=== PATIENT | female | born 1995 | race African-American/Black ===

== ENCOUNTER 2022-01-23 15:04 | Emergency (ER) | payer BC, SELFPAY ==
[2022-01-23] VITALS (16 sets, daily range): BP systolic 101–125; BP diastolic 64–85; PULSE 93–109; TEMP 36.1; O2SAT 95–98; BMI 38.7
--- NOTE | 2022-01-23 15:21 | ED_ITS ---
HPI - General Adult General Time Seen by Provider: 15:21 Date Seen: 01/23/22 Chief complaint: Chest Pain Stated complaint: Heart Palpatations Time Seen by Provider: 01/23/22 15:05 Source: patient and RN notes reviewed Mode of arrival: ambulatory Limitations: no limitations History of Present Illness HPI narrative: Patient is a 26-year-old female coming in with concern of sense of her heart beating irregular/palpitations. She states it is more of a sense were it will skip a beat. There is times where she feels heaviness or chest but no chest pain. She likens it more to a pressure sensation. Symptoms were present starting Wednesday. She denies any cough or cold symptoms, no recent COVID, no shortness of breath. She is not sensing a fast heart rate. Her mom told her yesterday that she has had symptoms like this before with gas buildup. She states her mom patted her on the back and she ended up having a large burp which did alleviate her symptoms but they returned. She has underlying IBS and reports that normally she would have 3-4 stools per day. She is going once to twice but not necessarily feeling constipated. She does wonder if she could have some stool buildup as she is not defecating as much as usual. No nausea or vomiting, no other abdominal symptoms, no urinary symptoms. She is currently menstruating at this time. She has no prior cardio pulmonary diagnoses. She does not believe that there is anything the family history that would be contributory to her current situation. I did ask about cardiac, pulmonary, endocrine history specifically as well. She is not had any fevers, has not felt warm. Related Data Home Medications Medication Instructions Recorded Confirmed bupropion HCl 300 mg 24 hr tablet, mg PO 01/23/22 extended release lansoprazole 30 mg capsule,delayed mg 01/23/22 release metoclopramide HCl 5 mg tablet mg 01/23/22 sertraline 100 mg tablet mg 01/23/22 Allergies Allergy/AdvReac Type Severity Reaction Status Date / Time nickel Allergy Unknown Verified 01/23/22 15:20 prochlorperazine Allergy Unknown Agitated Verified 01/23/22 15:20 [From Compazine] Review of Systems Status of ROS: Reports: 10 or more systems reviewed and unremarkable except as noted in History and below [facility] Medical History (Updated 01/23/22 @ 18:02 by Genny Cameron MD) Anxiety HSV-2 infection IBS (irritable bowel syndrome) Surgical History (Updated 01/23/22 @ 15:22 by John Flanagan RN) History of cholecystectomy Social History Smoking Status: Never smoker Do you use any of these nicotine containing products: None Second hand tobacco smoke exposure: No How often do you have a drink containing alcohol: never How often do you have six or more drinks on one occasion: Never AUDIT-C Alcohol total score: 0 Non-prescribed substance use: denies use Exam Const: Vital Signs, click to edit/add: Vital Signs - 24 hr 01/23/22 15:14 01/23/22 15:30 01/23/22 15:32 Temperature 96.9 F L Pulse Rate 104 H Pulse Rate [Left P ulse Oximeter] 104 H Blood Pressure 119/85 Blood Pressure [Ri ght Upper Arm] 125/76 Pulse Oximetry 97 96 95 Oxygen Delivery Me thod Room Air 01/23/22 15:33 01/23/22 16:02 01/23/22 16:03 Temperature Pulse Rate 109 H 106 H 99 Pulse Rate [Left P ulse Oximeter] Blood Pressure 101/78 Blood Pressure [Ri ght Upper Arm] Pulse Oximetry 95 97 96 Oxygen Delivery Me thod 01/23/22 16:04 01/23/22 16:34 01/23/22 16:35 Temperature Pulse Rate 104 H 101 H 102 H Pulse Rate [Left P ulse Oximeter] Blood Pressure 107/64 Blood Pressure [Ri ght Upper Arm] Pulse Oximetry 96 96 96 Oxygen Delivery Me thod 01/23/22 17:00 01/23/22 17:01 Temperature Pulse Rate 93 99 Pulse Rate [Left P ulse Oximeter] Blood Pressure 105/78 Blood Pressure [Ri ght Upper Arm] Pulse Oximetry 97 96 Oxygen Delivery Me thod Documenting provider has reviewed patient's vital signs: yes Common normals: no apparent distress, oriented x3, no limitations, alert and well nourished General appearance: cooperative, comfortable and well kempt Nutritional appearance: obese HENMT: Common normals: normocephalic, head/scalp atraumatic, hearing grossly normal bilaterally, external ears normal, external nose normal, nasal mucous membranes and turbinates normal, moist oral mucous membranes, oropharynx normal, dentition normal and gingiva normal Head and scalp: normocephalic and atraumatic Nose: external nose normal and nasal mucous membranes and turbinates normal External ear: external ears normal Eye: Common normals: PERRL, EOMs intact bilaterally, conjunctivae normal and no scleral icterus Conjunctiva: conjunctiva(e) normal Pupil: PERRL Neck & C-Spine: Common normals: full ROM, no lymphadenopathy, supple, no meningeal signs, no JVD and thyroid normal Thyroid: thyroid normal Chest: Common normals: inspection of chest normal and palpation of chest normal Resp: Common normals: normal respiratory effort, no retractions, no use of accessory muscles and clear to auscultation bilaterally Auscultation: clear to auscultation bilaterally Cardio: Common normals: no JVD, regular rhythm, S1 normal heart sound, S2 normal heart sound, no gallops, no clicks, no murmurs, no rub and peripheral pulses 2+ throughout Rate: tachycardic Rhythm: regular rhythm Heart sounds: S1 normal and S2 normal Peripheral pulses: pulses 2+ throughout GI: Common normals: Normal to inspection, nondistended, normoactive bowel sounds present, soft to palpation, non-tender, no hepatosplenomegaly and no masses Palpation: soft and no hepatosplenomegaly Extremity: Common normals: normal to inspection, full ROM, normal capillary refill, no joint enlargement, no clubbing, cyanosis or edema, no calf tenderness and no pedal edema Neuro: Common normals: oriented x3 Sensorium/orientation: alert Meningeal signs: no meningeal signs Speech: speech normal Gait (neuro): normal gait Other: No clonus, orbital or in extremities noted. Cannot elicit reflexes in her extremities. No noted increased motor tone. Psych: Appearance: well kempt Course Course Hospital Course: Well talking to her, nursing staff did have her on cardiac monitoring. She was tachycardic in the low 100 range but does not seem to be necessarily noted in she is tachycardic. I do not have prior vitals on her to compare to. Will have her on cardiac monitoring, pulse oximetry. Will get a portable chest chest x- ray and a full complement of labs. Endocrine disease such is hyperthyroidism, cardiac abnormalities could be at play here. She does not seem to have any source of any infectious etiology. This is a sinus tachycardia. She does not meet criteria for serotonin syndrome. Reevaluation(s) Additional Reevaluation(s): No concerning arrhythmia our the mild sinus tachycardia was noted while here. She was down into the 90s at different times when I was evaluating the monitor car operator. No new symptoms or change in her symptoms while here. Vital Signs Vital signs: Initial Vital Signs Temperature 96.9 F L 01/23/22 15:14 Temperature Source Temporal Artery Scan 01/23/22 15:14 Pulse Rate 104 H 01/23/22 15:14 Blood Pressure 125/76 01/23/22 15:14 Blood Pressure Mean 92 01/23/22 15:14 Blood Pressure Position Supine 01/23/22 15:14 Pulse Oximetry 97 01/23/22 15:14 Oxygen Delivery Method 01/23/22 15:14 Vital Signs Temperature 96.9 F L 01/23/22 15:14 Pulse Rate 104 H 01/23/22 15:14 Blood Pressure 125/76 01/23/22 15:14 Pulse Oximetry 97 01/23/22 15:14 Oxygen Delivery Method 01/23/22 15:14 Temperature 96.9 F L 01/23/22 15:14 Pulse Rate 99 01/23/22 17:01 Blood Pressure 105/78 01/23/22 17:01 Pulse Oximetry 96 01/23/22 17:01 Oxygen Delivery Method 01/23/22 15:14 Medical Decision Making Lab Data Lab results reviewed: Yes I reviewed the patient's lab results Labs: Lab Results 01/23/22 01/23/22 01/23/22 Range/Units 15:55 15:55 15:55 WBC 7.94 (4.50-11.00) K/uL RBC 4.38 (4.00-5.20) m/uL Hgb 13.2 (12.0-16.0) gm/dL Hct 40.5 (33.0-51.0) % MCV 93 (80-100) fL MCH 30 (26-34) pg MCHC 33 (32-36) gm/dL RDW Coeff of Manuel 12.9 (11.5-15.5) % Plt Count 348 (140-440) K/uL Neut % (Auto) 65.1 (42.0-72.0) % Lymph % (Auto) 26.2 (20-44) % [place] % (Auto) 5.9 (0.0-11.0) % Eos % (Auto) 2.3 (0.0-7.0) % Baso % (Auto) 0.4 (0.0-3.0) % Neut # (Auto) 5.17 (1.7-7.0) K/uL Lymph # (Auto) 2.08 (0.90-2.90) K/uL [place] # (Auto) 0.50 (0.00-0.90) K/UL Eos # (Auto) 0.18 (0.00-0.50) K/uL Baso # (Auto) 0.03 (0.00-0.30) K/uL Abs Immat Gran (auto) 0.01 (0.00-0.30) K/uL D-Dimer Quant (PE/DVT) < 0.27 (0.00-0.50) ug/ml VBG pH (7.32-7.43) VBG pCO2 (40-50) mmHG VBG pO2 (25-47) mmHG VBG HCO3 (21-28) mmol/L Sodium 139 (135-149) mmol/L Potassium 3.7 (3.6-5.1) mmol/L Chloride 104 (96-114) mmol/L Carbon Dioxide 26 (20-32) mmol/L BUN 14 (5-24) mg/dL Creatinine 0.7 (0.5-1.5) mg/dL Estimated Creat Clear 114.01 Estimated GFR 122 ml/min Glucose 105 (60-115) mg/dL Lactate (0.5-1.9) mmol/L Calcium 9.2 (8.4-10.6) mg/dL Total Bilirubin 0.3 (0.1-1.5) mg/dL AST 32 (12-35) U/L ALT 22 (4-35) U/L Alkaline Phosphatase 68 (40-150) U/L Troponin I < 0.01 L (0.01-0.04) ng/mL C-Reactive Protein 0.9 (0.5-1.0) mg/dL NT-Pro-B Natriuret Pep 31 (0-125) PG/mL Total Protein 7.2 (6.0-8.3) g/dL Albumin 4.1 (3.3-5.0) g/dL Lipase 161 (23-300) U/L TSH (0.270-4.200) uIU/mL 01/23/22 01/23/22 01/23/22 Range/Units 15:55 15:55 15:55 WBC (4.50-11.00) K/uL RBC (4.00-5.20) m/uL Hgb (12.0-16.0) gm/dL Hct (33.0-51.0) % MCV (80-100) fL MCH (26-34) pg MCHC (32-36) gm/dL RDW Coeff of Manuel (11.5-15.5) % Plt Count (140-440) K/uL Neut % (Auto) (42.0-72.0) % Lymph % (Auto) (20-44) % [place] % (Auto) (0.0-11.0) % Eos % (Auto) (0.0-7.0) % Baso % (Auto) (0.0-3.0) % Neut # (Auto) (1.7-7.0) K/uL Lymph # (Auto) (0.90-2.90) K/uL [place] # (Auto) (0.00-0.90) K/UL Eos # (Auto) (0.00-0.50) K/uL Baso # (Auto) (0.00-0.30) K/uL Abs Immat Gran (auto) (0.00-0.30) K/uL D-Dimer Quant (PE/DVT) (0.00-0.50) ug/ml VBG pH 7.366 (7.32-7.43) VBG pCO2 49 (40-50) mmHG VBG pO2 41.7 (25-47) mmHG VBG HCO3 28 (21-28) mmol/L Sodium (135-149) mmol/L Potassium (3.6-5.1) mmol/L Chloride (96-114) mmol/L Carbon Dioxide (20-32) mmol/L BUN (5-24) mg/dL Creatinine (0.5-1.5) mg/dL Estimated Creat Clear Estimated GFR ml/min Glucose (60-115) mg/dL Lactate 1.2 (0.5-1.9) mmol/L Calcium (8.4-10.6) mg/dL Total Bilirubin (0.1-1.5) mg/dL AST (12-35) U/L ALT (4-35) U/L Alkaline Phosphatase (40-150) U/L Troponin I (0.01-0.04) ng/mL C-Reactive Protein (0.5-1.0) mg/dL NT-Pro-B Natriuret Pep (0-125) PG/mL Total Protein (6.0-8.3) g/dL Albumin (3.3-5.0) g/dL Lipase (23-300) U/L TSH 1.160 (0.270-4.200) uIU/mL Imaging Data Chest x-ray: Attestation: I have reviewed the pertinent imaging results. My impression: My preliminary review of her portable chest x-ray is without acute cardiopulmonary pathology, await Radiology over-read. Radiologist's impression: Patient: PADMA BAÑUELOS Facility:?[facility] Patient ID:?[id number] Site Patient ID:?[id number]. Site :?[id number] Study:?XRay Chest 1 VIEW PORTABLE-01/23/2022 3:48:34 PM Ordering Physician:Bahman Royal Final Report: INDICATION: Chest pain, heart palpitations. TECHNIQUE: Chest 1 view. COMPARISON: None. FINDINGS: No focal consolidation, pleural effusion, or pneumothorax. Normal heart size and pulmonary vascularity. The bones are unremarkable. IMPRESSION: No acute cardiopulmonary findings. Dictated by Rashmi Garcia MD @ 01/23/2022 4:26:34 PM (Electronic Signature) ECG Data Attestation: I personally reviewed and interpreted this ECG as follows: (Sinus tachycardia, 102 beats per minute, QT corrected 448 milliseconds.) Prior ECG tracings: not available for review Discharge Plan Discharge Clinical Impression: Palpitations, Sinus tachycardia Patient Disposition: Home, Self-Care Condition: Stable Instructions: Heart Palpitations (ED), Tachycardia (ED) Additional Instructions: Need to schedule a clinic followup next week as soon as you can get in. Need to consider cardiac monitoring with a ZIO patch and possibly having an echo done, ultimately defer to your primary care provider you are following up with. Laboratory evaluation including thyroid was normal here. She did develop a fever, become short of breath, have worsening chest discomfort or new or co ncerning symptoms in the interim, do recommend re-evaluation. Prescriptions: No Action sertraline 100 mg tablet Label Comments: TAKE TWO TABLETS BY MOUTH DAILY metoclopramide HCl 5 mg tablet Label Comments: Take 1 Tablet (5 mg) by mouth every 6 hours if needed for Nausea/Vomiting lansoprazole 30 mg capsule,delayed release(DR/EC) Label Comments: TAKE ONE CAPSULE BY MOUTH ONE TIME DAILY bupropion HCl 300 mg tablet extended release 24 hr PO Label Comments: TAKE ONE TABLET BY MOUTH IN THE MORNING Stand Alone Forms: [facility] Info Inst[facility]
--- NOTE | 2022-01-23 15:30 | CRLHL7_ITS ---
For Patients: As a result of the Century Cures Act, medical imaging exams and procedure reports are released immediately into your electronic medical record. You may view this report before your referring provider. If you have questions, please contact your health care provider. INDICATION: Chest pain, heart palpitations. TECHNIQUE: Chest 1 view. COMPARISON: None. FINDINGS: No focal consolidation, pleural effusion, or pneumothorax. Normal heart size and pulmonary vascularity. The bones are unremarkable. IMPRESSION: No acute cardiopulmonary findings. Dictated by Rashmi Garcia MD @ 01/23/2022 4:26:34 PM (Electronically Signed)
[2022-01-23 16:16] LABS: HCO3 VBG 28 mmol/L (21-28); PCO2 VBG 49 mmHG (40-50); PO2 VBG 41.7 mmHG (25-47); pH VBG 7.366 (7.32-7.43)
[2022-01-23 16:20] LABS: Basophils Absolute Auto 0.03 K/uL (0.00-0.30); Basophils Percent Auto 0.4 % (0.0-3.0); Eosinophils Absolute Auto 0.18 K/uL (0.00-0.50); Eosinophils Percent Auto 2.3 % (0.0-7.0); Hematocrit 40.5 % (33.0-51.0); Hemoglobin* 13.2 gm/dL (12.0-16.0); Immature Granulocytes Abs Auto 0.01 K/uL (0.00-0.30); Lactate* 1.2 mmol/L (0.5-1.9); Lymphocytes Absolute Auto 2.08 K/uL (0.90-2.90); Lymphocytes Percent Auto 26.2 % (20-44); Mean Corpuscular HGB Conc 33 gm/dL (32-36); Mean Corpuscular Hemoglobin 30 pg (26-34); Mean Corpuscular Volume 93 fL (80-100); Monocytes Percent Auto 5.9 % (0.0-11.0); Neutrophils Absolute Auto 5.17 K/uL (1.7-7.0); Neutrophils Percent Auto 65.1 % (42.0-72.0); Platelet Count* 348 K/uL (140-440); RDW Coefficient of Variation % 12.9 % (11.5-15.5); Red Blood Count 4.38 m/uL (4.00-5.20); White Blood Count* 7.94 K/uL (4.50-11.00)
[2022-01-23 16:23] LABS: Slide Review Reflex No
[2022-01-23 16:45] LABS: Albumin* 4.1 g/dL (3.3-5.0); Chloride* 104 mmol/L (96-114)
[2022-01-23 16:46] LABS: Potassium* 3.7 mmol/L (3.6-5.1); Sodium* 139 mmol/L (135-149)
[2022-01-23 16:48] LABS: Creatinine* 0.7 mg/dL (0.5-1.5); Est. Creatinine Clearance* 114.01; Estimated Glomerular Filt Rate 122 ml/min
[2022-01-23 16:49] LABS: Alanine Aminotransferase* 22 U/L (4-35); Alkaline Phosphatase* 68 U/L (40-150); Aspartate Amino Transferase* 32 U/L (12-35); Bilirubin Total* 0.3 mg/dL (0.1-1.5); Blood Urea Nitrogen* 14 mg/dL (5-24); Calcium* 9.2 mg/dL (8.4-10.6); Carbon Dioxide* 26 mmol/L (20-32); Glucose* 105 mg/dL (60-115); Lipase* 161 U/L (23-300); Total Protein* 7.2 g/dL (6.0-8.3)
[2022-01-23 16:52] LABS: C Reactive Protein* 0.9 mg/dL (0.5-1.0)
[2022-01-23 16:58] LABS: NT Pro B Type NatriureticPept* 31 PG/mL (0-125)
[2022-01-23 17:02] LABS: Troponin I* < 0.01 ng/mL (0.01-0.04)
[2022-01-23 17:03] LABS: D Dimer Quantitative* < 0.27 ug/ml (0.00-0.50)
== END 2022-01-23 18:18 | disposition home or self-care (01) ==
PROVIDERS: Emergency Provider Family Medicine
DX: R00.2 Palpitations (principal); R00.0 Tachycardia, unspecified
CPT/HCPCS: 36415; 71045; 80053; 82803; 83605; 83690; 83880; 84443; 84484; 85025; 85379; 86140; 93005; 94761; 99284; 99285

== ENCOUNTER 2022-03-13 11:23 | Emergency (ER) | payer BC, SELFPAY ==
[2022-03-13 11:39] VITALS: BP 108/74; PULSE 107; RESP 20; TEMP 36.3; O2SAT 108; BMI 40.0
--- NOTE | 2022-03-13 12:03 | CRLHL7_ITS ---
For Patients: As a result of the Century Cures Act, medical imaging exams and procedure reports are released immediately into your electronic medical record. You may view this report before your referring provider. If you have questions, please contact your health care provider. INDICATION: First trimester bleeding COMPARISON: None. TECHNIQUE: Real-time vang-scale imaging of the pelvis was performed. FINDINGS: Sonographic imaging demonstrates a single living intrauterine gestation. The embryo demonstrates a regular cardiac rate measuring 168 beats per minute. The embryo`s crown-rump length measurement of 1.7 cm corresponds to a gestational age of 8 weeks 1 day with a sonographic due date of 10/22/2022. There is a normal-appearing yolk sac. There are no gross abnormalities noted within the embryo at this early state of development. The gestational sac has a normal appearance. There is a 4.3 x 1.9 x 1.4 cm perigestational hemorrhage. The amount of fluid within the sac appears appropriate for gestational age. The cervix is closed. The myometrium appears normal. The ovaries are of normal size. Corpus luteal cyst left ovary. There are no suspicious fluid collections noted in the cul-de-sac. IMPRESSION: Large subchorionic hemorrhage measuring 4.3 x 1.9 x 1.4 cm located to the left of the gestational sac. Single living intrauterine with sonographic gestational age 8 weeks 1 day and sonographic due date 10/22/2022. Dictated by Alvin Lloyd MD @ 03/13/2022 2:04:02 PM (Electronically Signed)
--- NOTE | 2022-03-13 12:12 | ED_ITS ---
HPI - General Adult General Time Seen by Provider: 12:13 Date Seen: 03/13/22 Chief complaint: Vaginal Bleeding Stated complaint: 8 weeks ,bleeding Time Seen by Provider: 03/13/22 11:47 Source: patient Mode of arrival: ambulatory Limitations: no limitations History of Present Illness HPI narrative: 26-year-old G3 P 0111 at 7+ 5 weeks by last menstrual period of January 21 who presents today with bleeding. She reports that she has had discharge throughout this , along with nausea vomiting. Today she noted some blood. She is unsure if this is urinary or vaginal. She has not had any abdominal pain or cramping, does feel like she may be constipated although having normal bowel movements. She has not had an ultrasound yet this . She denies fever, chills, dysuria. Last intercourse was over week ago. Related Data Home Medications Medication Instructions Recorded Confirmed bupropion HCl 300 mg 24 hr tablet, 300 mg PO DAILY 01/23/22 03/13/22 extended release lansoprazole 30 mg capsule,delayed 30 mg PO DAILY 01/23/22 03/13/22 release metoclopramide HCl 5 mg tablet 5 mg PO Q6H PRN 01/23/22 03/13/22 sertraline 100 mg tablet 200 mg PO Q24H 01/23/22 03/13/22 vits 75-iron 28 mg-folic 1 pkg PO DAILY 03/06/22 03/13/22 acid 800 mcg-omega3 440 mg oral pack (One Daily ) bupropion HCl 150 mg 24 hr tablet, 150 mg PO DAILY 03/13/22 03/13/22 extended release ondansetron 4 mg disintegrating 4 mg PO Q6H PRN 03/13/22 03/13/22 tablet Allergies Allergy/AdvReac Type Severity Reaction Status Date / Time nickel Allergy Unknown Verified 03/06/22 15:31 prochlorperazine Allergy Unknown Agitated Verified 03/06/22 15:31 [From Compazine] Review of Systems Status of ROS: Reports: 10 or more systems reviewed and unremarkable except as noted in History and below [facility] Medical History Anxiety HSV-2 infection IBS (irritable bowel syndrome) Surgical History History of cholecystectomy Social History Smoking Status: Former smoker Do you use any of these nicotine containing products: None Second hand tobacco smoke exposure: No How often do you have a drink containing alcohol: never How often do you have six or more drinks on one occasion: Never AUDIT-C Alcohol total score: 0 Non-prescribed substance use: denies use Exam Narrative: Exam Narrative: General: Well-developed and well-nourished, no acute distress Head: Atraumatic and normocephalic Eyes: Pupils are equal reactive, extraocular motions intact, conjunctiva clear ENT: External nose and ears are normal, posterior pharynx without erythema or exudate Neck: No midline cervical tenderness, full spontaneous range of motion the neck, trachea midline, no adenopathy Heart: Regular rate and rhythm no murmurs or thrills Lungs: Clear to auscultation bilaterally without wheezes or crackles Abdomen: Soft, nontender, nondistended with active bowel sounds : Thin white vaginal discharge, no blood in the vaginal vault or from the cervix. Cervix is closed. No cervical motion tenderness. Musculoskeletal: No tenderness, deformity, or edema Neurologic: Awake, alert, and oriented x3, no gross focal neurologic deficits, cranial nerves intact as tested Psych: Mood and affect are appropriate Skin: No rashes Const: Vital Signs, click to edit/add: Vital Signs - 24 hr 03/13/22 11:39 Temperature 97.3 F L Pulse Rate [Right Pulse Oximeter] 107 H Respiratory Rate 20 Blood Pressure [Ri ght Upper Arm] 108/74 Pulse Oximetry 108 H Oxygen Delivery Me thod Room Air Course Course Hospital Course: Patient seen examined, prior records reviewed. Patient is about 8 weeks with ongoing vaginal discharge, now with a little bit of bleeding as well although she is not sure if this is vaginal or urinary. No abdominal tenderness on exam. No blood in the vaginal vault on exam, there is thin white discharge and wet prep as well as GC/C ordered. Urinalysis will be done to evaluate for hematuria, Ob ultrasound ordered as well. Reevaluation(s) Reevaluation #1: Labs are reassuring so far. Trace blood on UA with some white blood cells but contaminated with squamous cells as well. Patient will be started on antibiotic and cultures ordered. Wet prep is negative. Verbal report from zone maintenance technician is that patient has a subchorionic hemorrhage that seems to be expanding even during the course of the exam but otherwise intrauterine . Radiology interpretation is pending. Patient is stable for discharge with outpatient follow-up and will be started on Keflex for possible urinary tract infection. Concern for possible impending miscarriage given subchorionic hemorrhage and history of miscarriage. Time: 13:48 Vital Signs Vital signs: Initial Vital Signs Temperature 97.3 F L 03/13/22 11:39 Temperature Source Temporal Artery Scan 03/13/22 11:39 Pulse Rate 107 H 03/13/22 11:39 Respiratory Rate 20 03/13/22 11:39 Blood Pressure 108/74 03/13/22 11:39 Blood Pressure Mean 85 03/13/22 11:39 Blood Pressure Position Sitting 03/13/22 11:39 Pulse Oximetry 108 H 03/13/22 11:39 Oxygen Delivery Method 03/13/22 11:39 Vital Signs Temperature 97.3 F L 03/13/22 11:39 Pulse Rate 107 H 03/13/22 11:39 Respiratory Rate 20 03/13/22 11:39 Blood Pressure 108/74 03/13/22 11:39 Pulse Oximetry 108 H 03/13/22 11:39 Oxygen Delivery Method 03/13/22 11:39 Temperature 97.3 F L 03/13/22 11:39 Pulse Rate 107 H 03/13/22 11:39 Respiratory Rate 20 03/13/22 11:39 Blood Pressure 108/74 03/13/22 11:39 Pulse Oximetry 108 H 03/13/22 11:39 Oxygen Delivery Method 03/13/22 11:39 Medical Decision Making Medical Records Medical records reviewed: Yes I reviewed the patient's medical records Lab Data Lab results reviewed: Yes I reviewed the patient's lab results Labs: Lab Results 03/13/22 03/13/22 03/13/22 Range/Units 12:10 12:10 12:15 Sodium (135-149) mmol/L Potassium (3.6-5.1) mmol/L Chloride (96-114) mmol/L Carbon Dioxide (20-32) mmol/L BUN (5-24) mg/dL Creatinine (0.5-1.5) mg/dL Estimated Creat Clear Estimated GFR ml/min Glucose (60-115) mg/dL Calcium (8.4-10.6) mg/dL Urine Color Yellow (Yellow) Urine Appearance Clear (Clear) Urine pH 5.5 (5.0-8.5) Ur Specific [place] >= 1.030 (1.000-1.030) Urine Protein 1+ A (Negative) Urine Glucose (UA) Negative (Negative) Urine Ketones 3+ A (Negative) Urine Blood Trace-lysed A (Negative) Urine Nitrite Negative (Negative) Urine Bilirubin 2+ A (Negative) Urine Urobilinogen 1.0 (0.2-1.0) Ur Leukocyte Esterase 3+ A (Negative) Urine RBC 2-5 A (0-2) Urine WBC 5-10 A (0-5) Ur Squamous Epith Cells Moderate A (None-Few) Urine Bacteria Moderate A (None) Vaginal Trichomonas No Trichomonas Seen (None Seen) Vaginal Yeast No Yeast Seen (None Seen) Vaginal Clue Cells No Clue Cells Seen (None Seen) C.trachomatis Ampl DNA NOT DETECTED (No Detected) N.gonorrhoeae Ampl DNA NOT DETECTED (No Detected) 03/13/22 Range/Units 12:38 Sodium 136 (135-149) mmol/L Potassium 3.9 (3.6-5.1) mmol/L Chloride 104 (96-114) mmol/L Carbon Dioxide 22 (20-32) mmol/L BUN 6 (5-24) mg/dL Creatinine 0.6 (0.5-1.5) mg/dL Estimated Creat Clear 133.01 Estimated GFR 127 ml/min Glucose 101 (60-115) mg/dL Calcium 8.9 (8.4-10.6) mg/dL Urine Color (Yellow) Urine Appearance (Clear) Urine pH (5.0-8.5) Ur Specific [place] (1.000-1.030) Urine Protein (Negative) Urine Glucose (UA) (Negative) Urine Ketones (Negative) Urine Blood (Negative) Urine Nitrite (Negative) Urine Bilirubin (Negative) Urine Urobilinogen (0.2-1.0) Ur Leukocyte Esterase (Negative) Urine RBC (0-2) Urine WBC (0-5) Ur Squamous Epith Cells (None-Few) Urine Bacteria (None) Vaginal Trichomonas (None Seen) Vaginal Yeast (None Seen) Vaginal Clue Cells (None Seen) C.trachomatis Ampl DNA (No Detected) N.gonorrhoeae Ampl DNA (No Detected) Imaging Data Ob ultrasound: Attestation: I have reviewed the pertinent imaging results. Radiologist's impression: IMPRESSION: Large subchorionic hemorrhage measuring 4.3 x 1.9 x 1.4 cm located to the left of the gestational sac. Single living intrauterine with sonographic gestational age 8 weeks 1 day and sonographic due date 10/22/2022. Discharge Plan Discharge Clinical Impression: Subchorionic hemorrhage in first trimester Patient Disposition: Home, Self-Care Condition: Stable Instructions: Subchorionic Hemorrhage (ED) Additional Instructions: Tylenol as needed for pain, plenty of fluids. Take antibiotics as prescribed. Follow-up with your OB or primary care provider next week. Activity Level: No Restrictions Discharge Diet: Regular Prescriptions: No Action One Daily [id number] mg-mcg-mg combo pack 1 pkg PO DAILY sertraline 100 mg tablet 200 mg PO Q24H Label Comments: TAKE TWO TABLETS BY MOUTH DAILY metoclopramide HCl 5 mg tablet 5 mg PO Q6H PRN Label Comments: Take 1 Tablet (5 mg) by mouth every 6 hours if needed for Nausea/Vomiting lansoprazole 30 mg capsule,delayed release(DR/EC) 30 mg PO DAILY Label Comments: TAKE ONE CAPSULE BY MOUTH ONE TIME DAILY bupropion HCl 300 mg tablet extended release 24 hr 300 mg PO DAILY Label Comments: TAKE ONE TABLET BY MOUTH IN THE MORNING bupropion HCl 150 mg tablet extended release 24 hr 150 mg PO DAILY ondansetron 4 mg tablet,disintegrating 4 mg PO Q6H PRN Follow Up/Referrals: Provider,Not a Local [Primary Care Provider] - Stand Alone Forms: [employer] Info Instructions
[2022-03-13 12:21] LABS: Clue Cells No Clue Cells Seen (None Seen); Trichomonas No Trichomonas Seen (None Seen); Yeast No Yeast Seen (None Seen)
[2022-03-13] MEDS: ONDANSETRON ODT 4 MG TAB 8 MG PO (12:32)
[2022-03-13 12:58] LABS: Chloride* 104 mmol/L (96-114); Potassium* 3.9 mmol/L (3.6-5.1); Sodium* 136 mmol/L (135-149)
[2022-03-13 13:01] LABS: Blood Urea Nitrogen* 6 mg/dL (5-24); Calcium* 8.9 mg/dL (8.4-10.6); Carbon Dioxide* 22 mmol/L (20-32); Creatinine* 0.6 mg/dL (0.5-1.5); Est. Creatinine Clearance* 133.01; Estimated Glomerular Filt Rate 127 ml/min; Glucose* 101 mg/dL (60-115)
[2022-03-13 13:22] LABS: Color Urine Yellow (Yellow)
[2022-03-13 13:23] LABS: Appearance Urine Clear (Clear); Bilirubin Urine 2+ (Negative); Glucose Urine Negative (Negative); Ketones Urine 3+ (Negative); Specific Gravity Urine >= 1.030 (1.000-1.030)
[2022-03-13 13:24] LABS: Bacteria Urine Moderate; Blood Urine Trace-lysed (Negative); Leukocyte Esterase Urine 3+ (Negative); Nitrite Urine Negative (Negative); Protein Urine 1+ (Negative); Squamous Epithelial Cell Urine Moderate (None-Few); pH Urine 5.5 (5.0-8.5)
[2022-03-13 13:44] LABS: Chlamydia DNA Amplified* NOT DETECTED (No Detected); GC DNA Amplified* NOT DETECTED (No Detected)
--- NOTE | 2022-03-13 14:29 | ED.NURSE ---
Pt states she will be unable to take Insty Meds antibiotic orally as she cannot keep anything down. MD aware and changing orders to IM rocephin pending cultures.
[2022-03-13] MEDS: LIDOCAINE 1% 5 ml (pf) 5 ML VIAL 2.1 ML IM (14:33)
[2022-03-13] MEDS: cefTRIAXone 1 GM VIAL IM (14:33)
== END 2022-03-13 14:30 | disposition home or self-care (01) ==
PROVIDERS: Emergency Provider Family Medicine
DX: O26.851 Spotting complicating pregnancy, first trimester (principal)
CPT/HCPCS: 36415; 76817; 80048; 81001; 84702; 87086; 87210; 87491; 87591; 96372; 99284; A9270; J0696

== ENCOUNTER 2022-04-19 20:02 | Emergency (ER) | payer BC, SELFPAY ==
[2022-04-19 20:14] VITALS: BP 116/79; PULSE 107; RESP 22; TEMP 36.4; O2SAT 97; BMI 38.9
--- NOTE | 2022-04-19 20:31 | ED.GENADULT ---
HPI - General Adult General Time Seen by Provider: 20:32 Date Seen: 04/19/22 Chief complaint: Abdominal Pain Stated complaint: 13 Weeks Preg and Weak Cervix,Needs to be Checked Time Seen by Provider: 04/19/22 20:11 Source: patient, RN notes reviewed and old records reviewed Mode of arrival: ambulatory Limitations: no limitations History of Present Illness HPI narrative: 26-year-old 101 who is proximally 13 weeks by LMP, scheduled for cerclage in 10 days and concern that her cervix may be opening. She brought a picture of this with her on her phone, it appears that she is looking at her urethra. She denies any abdominal pain or cramping. No vaginal bleeding, and a little more discharge than usual yesterday but improved today. Prior delivery at 22 weeks. She is following with [facility] and has a cerclage scheduled on April 30. Related Data Home Medications Medication Instructions Recorded Confirmed bupropion HCl 300 mg 24 hr tablet, 300 mg PO DAILY 01/23/22 03/13/22 extended release lansoprazole 30 mg capsule,delayed 30 mg PO DAILY 01/23/22 03/13/22 release metoclopramide HCl 5 mg tablet 5 mg PO Q6H PRN 01/23/22 03/13/22 sertraline 100 mg tablet 200 mg PO Q24H 01/23/22 03/13/22 vits 75-iron 28 mg-folic 1 pkg PO DAILY 03/06/22 03/13/22 acid 800 mcg-omega3 440 mg oral pack (One Daily ) bupropion HCl 150 mg 24 hr tablet, 150 mg PO DAILY 03/13/22 03/13/22 extended release ondansetron 4 mg disintegrating 4 mg PO Q6H PRN 03/13/22 03/13/22 tablet Allergies Allergy/AdvReac Type Severity Reaction Status Date / Time nickel Allergy Unknown Verified 04/19/22 20:14 prochlorperazine Allergy Unknown Agitated Verified 04/19/22 20:14 [From Compazine] Review of Systems Status of ROS: Reports: 10 or more systems reviewed and unremarkable except as noted in History and below [facility] Medical History Anxiety HSV-2 infection IBS (irritable bowel syndrome) Surgical History History of cholecystectomy Social History Smoking Status: Former smoker Do you use any of these nicotine containing products: None Second hand tobacco smoke exposure: No How often do you have a drink containing alcohol: never How often do you have six or more drinks on one occasion: Never AUDIT-C Alcohol total score: 0 Non-prescribed substance use: denies use service: No Exam Narrative: Exam Narrative: General: Well-developed and well-nourished, no acute distress Head: Atraumatic and normocephalic Eyes: Pupils are equal reactive, extraocular motions intact, conjunctiva clear ENT: External nose and ears are normal, posterior pharynx without erythema or exudate Neck: No midline cervical tenderness, full spontaneous range of motion the neck, trachea midline, no adenopathy Heart: Regular rate and rhythm no murmurs or thrills Lungs: Clear to auscultation bilaterally without wheezes or crackles Abdomen: Soft, nontender, nondistended with active bowel sounds Musculoskeletal: No tenderness, deformity, or edema Neurologic: Awake, alert, and oriented x3, no gross focal neurologic deficits, cranial nerves intact as tested Psych: Mood and affect are appropriate Skin: No rashes : Performed with nurse in the room. Poor visualization of the crevix on speculum exam, no blood or abnormal discharge. On digital exam, the external os is fingertip, internal os closed. Const: Vital Signs, click to edit/add: Vital Signs - 24 hr 04/19/22 20:14 Temperature 97.5 F L Pulse Rate [Pulse Oximeter] 107 H Respiratory Rate 22 Blood Pressure [Le ft Forearm] 116/79 Pulse Oximetry 97 Oxygen Delivery Me thod Room Air Course Course Hospital Course: Patient seen and examined, prior records reviewed. Patient with history very delivery and presumed cervical insufficiency with her last , and comes in today ?feeling like my cervix is open. ? No vaginal bleeding and no cramping. Bedside ultrasound demonstrates intrauterine with movement and heart rate of 150-160. No abdominal tenderness. Pelvic exam will be performed. I did look at the x-ray that patient brought with her and appears that what she thought was an open cervix is actually her urethra. Reevaluation(s) Reevaluation #1: Pelvic exam performed, no blood or discharge in the vaginal vault. Cervix is fingertip externally but closed internally. Discussed findings with patient, follow-up with primary care. Time: 21:07 Vital Signs Vital signs: Initial Vital Signs Temperature 97.5 F L 04/19/22 20:14 Temperature Source Temporal Artery Scan 04/19/22 20:14 Pulse Rate 107 H 04/19/22 20:14 Pulse Rhythm 04/19/22 20:14 Respiratory Rate 22 04/19/22 20:14 Blood Pressure 116/79 04/19/22 20:14 Blood Pressure Mean 91 04/19/22 20:14 Blood Pressure Position Supine 04/19/22 20:14 Pulse Oximetry 97 04/19/22 20:14 Oxygen Delivery Method 04/19/22 20:14 Vital Signs Temperature 97.5 F L 04/19/22 20:14 Pulse Rate 107 H 04/19/22 20:14 Respiratory Rate 22 04/19/22 20:14 Blood Pressure 116/79 04/19/22 20:14 Pulse Oximetry 97 04/19/22 20:14 Oxygen Delivery Method 04/19/22 20:14 Temperature 97.5 F L 04/19/22 20:14 Pulse Rate 107 H 04/19/22 20:14 Respiratory Rate 22 04/19/22 20:14 Blood Pressure 116/79 04/19/22 20:14 Pulse Oximetry 97 04/19/22 20:14 Oxygen Delivery Method 04/19/22 20:14 Medical Decision Making Medical Records Medical records reviewed: Yes I reviewed the patient's medical records Lab Data Lab results reviewed: Yes I reviewed the patient's lab results Discharge Plan Discharge Clinical Impression: , H/O incompetent cervix, currently Patient Disposition: Home, Self-Care Condition: Stable Instructions: at 11 to 14 Weeks (ED) Additional Instructions: Follow-up with your financial aid manager, call in the morning Activity Detail: Nothing per vagina (tampon, intercourse) until you see your financial aid manager Discharge Diet: Regular Prescriptions: No Action One Daily [id number] mg-mcg-mg combo pack 1 pkg PO DAILY sertraline 100 mg tablet 200 mg PO Q24H Label Comments: TAKE TWO TABLETS BY MOUTH DAILY metoclopramide HCl 5 mg tablet 5 mg PO Q6H PRN Label Comments: Take 1 Tablet (5 mg) by mouth every 6 hours if needed for Nausea/Vomiting lansoprazole 30 mg capsule,delayed release(DR/EC) 30 mg PO DAILY Label Comments: TAKE ONE CAPSULE BY MOUTH ONE TIME DAILY bupropion HCl 300 mg tablet extended release 24 hr 300 mg PO DAILY Label Comments: TAKE ONE TABLET BY MOUTH IN THE MORNING bupropion HCl 150 mg tablet extended release 24 hr 150 mg PO DAILY ondansetron 4 mg tablet,disintegrating 4 mg PO Q6H PRN Follow Up/Referrals: Provider,Not a Local [Primary Care Provider] - Stand Alone Forms: [employer] Info Instructions
--- NOTE | 2022-04-19 21:07 | ED.NURSE ---
pelvic exam was done and cervix is high and closed.
== END 2022-04-19 21:14 | disposition home or self-care (01) ==
PROVIDERS: Emergency Provider Family Medicine
DX: Z3A.13 13 weeks gestation of pregnancy (principal); N88.3 Incompetence of cervix uteri
CPT/HCPCS: 99283

== ENCOUNTER 2022-08-19 11:21 | Outpatient (CLI) | payer BC, SELFPAY | END 2022-08-19 11:22 | disposition home or self-care (01) | PROVIDERS: Visit Provider Family Medicine | DX: R06.02 Shortness of breath (principal) ==

== ENCOUNTER 2022-08-21 21:22 | Emergency (ER) | payer BC, SELFPAY ==
[2022-08-21 21:29] VITALS: BP 91/66; PULSE 120; RESP 22; TEMP 36.4; O2SAT 98; BMI 38.7
--- NOTE | 2022-08-21 21:43 | ED_ITS ---
HPI - General Adult General Chief complaint: Abdominal Pain Stated complaint: stomach cramps, shortness of breath Time Seen by Provider: 08/21/22 21:40 History of Present Illness HPI narrative: Patient is a 26-year-old woman who is 3 para [address] who presents with mild shortness of breath pharyngitis as well as diffuse abdominal discomfort. She has had no vaginal discharge no contractions. She has had no fevers no chills no night sweats. No history of chest pain. Patient otherwise feeling well. has been progressing normally with the exception of the cerclage needed. She does have underlying heartburn which is chronic and stable. Related Data Home Medications Medication Instructions Recorded Confirmed bupropion HCl 300 mg 24 hr tablet, 300 mg PO DAILY 01/23/22 08/21/22 extended release lansoprazole 30 mg capsule,delayed 30 mg PO DAILY 01/23/22 08/21/22 release metoclopramide HCl 5 mg tablet 5 mg PO Q6H PRN 01/23/22 08/21/22 sertraline 100 mg tablet 200 mg PO Q24H 01/23/22 08/21/22 vits 75-iron 28 mg-folic 1 pkg PO DAILY 03/06/22 08/21/22 acid 800 mcg-omega3 440 mg oral pack (One Daily ) bupropion HCl 150 mg 24 hr tablet, 150 mg PO DAILY 03/13/22 08/21/22 extended release ondansetron 4 mg disintegrating 4 mg PO Q6H PRN 03/13/22 08/21/22 tablet progesterone micronized 200 mg 200 mg vaginal QPM 08/21/22 08/21/22 capsule sertraline 50 mg tablet mg PO 08/21/22 Allergies Allergy/AdvReac Type Severity Reaction Status Date / Time nickel Allergy Unknown Verified 04/19/22 20:14 prochlorperazine Allergy Unknown Agitated Verified 04/19/22 20:14 [From Compazine] Review of Systems Status of ROS: Reports: 10 or more systems reviewed and unremarkable except as noted in History and below [facility] Medical History Anxiety ?F41.9 - Anxiety disorder, unspecified (ICD-10) 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 - Herpesviral infection, unspecified (ICD-10) IBS (irritable bowel syndrome) ?K58.9 - Irritable bowel syndrome without diarrhea (ICD-10) Surgical History History of cholecystectomy ?Z90.49 - Acquired absence of other specified parts of digestive tract (ICD- 10) Social History Smoking Status: Never smoker Do you use any of these nicotine containing products: None Second hand tobacco smoke exposure: No How often do you have a drink containing alcohol: never How often do you have six or more drinks on one occasion: Never AUDIT-C Alcohol total score: 0 Non-prescribed substance use: denies use service: No Exam Narrative: Exam Narrative: EXAM GENERAL: Patient appears comfortable and well. EYES: No scleral icterus. THYROID: no thyroid nodules or thyromegaly. LYMPH: No supraclavicular or cervical lymphadenopathy. SKIN: Visible skin seen during exam normal or with benign process only. EXT: No dependent lower extremity pedal edema. HEART: Mildly tachycardic. LUNGS: Clear to auscultation bilaterally with no crackles or wheezes. ABD: Soft, non tender, non distended. Thirty-one weeks soft. OB is here to assess PSYCH: Good eye contact, speech is not pressured. Const: Vital Signs, click to edit/add: Vital Signs - 24 hr 08/21/22 21:29 08/21/22 21:48 Temperature 97.5 F L Pulse Rate [Pulse Oximeter] 120 H 138 H Respiratory Rate 22 16 Blood Pressure [Le ft Upper Arm] 91/66 105/79 Pulse Oximetry 98 96 Oxygen Delivery Me thod Room Air Room Air Course Course Hospital Course: I did seen examined the patient. Rapid strep COVID testing influenza testing CBC basic metabolic panel EKG ordered. Patient given 1 L of normal saline. Vital Signs Vital signs: Initial Vital Signs Temperature 97.5 F L 08/21/22 21:29 Temperature Source Temporal Artery Scan 08/21/22 21:29 Pulse Rate 120 H 08/21/22 21:29 Respiratory Rate 22 08/21/22 21:29 Blood Pressure 91/66 08/21/22 21:29 Blood Pressure Mean 74 08/21/22 21:29 Pulse Oximetry 98 08/21/22 21:29 Oxygen Delivery Method Room Air 08/21/22 21:29 Vital Signs Temperature 97.5 F L 08/21/22 21:29 Pulse Rate 120 H 08/21/22 21:29 Respiratory Rate 22 08/21/22 21:29 Blood Pressure 91/66 08/21/22 21:29 Pulse Oximetry 98 08/21/22 21:29 Oxygen Delivery Method Room Air 08/21/22 21:29 Temperature 97.5 F L 08/21/22 21:29 Pulse Rate 138 H 08/21/22 21:48 Respiratory Rate 16 08/21/22 21:48 Blood Pressure 105/79 08/21/22 21:48 Pulse Oximetry 96 08/21/22 21:48 Oxygen Delivery Method Room Air 08/21/22 21:48 Medical Decision Making MDM Narrative Medical decision making narrative: Patient is 31 week woman comes in today with abdominal pain no vaginal discharge. She is mildly tachycardic but has shortness of breath although her oxygen saturations 96% on room air. I did begin the evaluation with EKG 1 L of normal saline CBC basic metabolic panel rapid strep COVID influenza testing. Known told that the patient will be admitted to OB and will be seen by the aligned OB provider on-call. Discharge Plan Discharge Clinical Impression: Abdominal pain Patient Disposition: Admit to OB Condition: Stable Prescriptions: No Action One Daily [id number] mg-mcg-mg combo pack 1 pkg PO DAILY sertraline 100 mg tablet 200 mg PO Q24H Patient Comments: TAKE TWO TABLETS BY MOUTH DAILY metoclopramide HCl 5 mg tablet 5 mg PO Q6H PRN Hold Instructions: Doctor's Order Patient Comments: Take 1 Tablet (5 mg) by mouth every 6 hours if needed for Nausea/Vomiting lansoprazole 30 mg capsule,delayed release(DR/EC) 30 mg PO DAILY Patient Comments: TAKE ONE CAPSULE BY MOUTH ONE TIME DAILY bupropion HCl 300 mg tablet extended release 24 hr 300 mg PO DAILY Patient Comments: TAKE ONE TABLET BY MOUTH IN THE MORNING bupropion HCl 150 mg tablet extended release 24 hr 150 mg PO DAILY ondansetron 4 mg tablet,disintegrating 4 mg PO Q6H PRN progesterone micronized 200 mg capsule 200 mg vaginal QPM sertraline 50 mg tablet PO Follow Up/Referrals: Provider,Not a Local [Primary Care Provider] -
[2022-08-21 21:48] VITALS: BP 105/79; PULSE 138; RESP 16; O2SAT 96
--- NOTE | 2022-08-21 22:10 | ED.NURSE ---
Patient assessed with OB RN's and monitoring device. Decision made by OB RN's to transfer patient to OB for further care. ED orders were not completed and this was communicated to OB team.
== END 2022-08-21 22:14 | disposition other institution (70) ==
PROVIDERS: Emergency Provider Internal Medicine
DX: O26.893 Other specified pregnancy related conditions, third trimester (principal); R10.9 Unspecified abdominal pain; Z3A.31 31 weeks gestation of pregnancy
CPT/HCPCS: 80048; 85025; 87631; 87651; 99283

== ENCOUNTER 2022-08-21 22:12 | Outpatient (CLI) | payer BC, SELFPAY ==
[2022-08-21] MEDS: LACTATED RINGERS 1000 ML 1,000 ML IV (22:14)
--- NOTE | 2022-08-21 23:13 | PM.OBLDTN ---
OB - Triage/Final Diagnosis Visit Information Narrative: The patient is a 26 year old 3 para 0111 at 30+5 weeks gestation by LMP and confirmed with first trimester US, who presents with intermittent abdominal cramping/contractions, sore throat and an episode of emesis. Patient initially messaged her primary OB provider this morning with a sore throat followed by shakes and an episode of emesis. This evening, she developed abdominal pain/cramping and came into the ER for evaluation. She feels cramping primarily in the back, but also across the abdomen. She has nausea with the abdominal pain. She reports her mom is sick with nausea/vomiting and her son has recently had an ear infection. She has had no fevers. Her is complicated by a prior delivery at 22+4 weeks secondary to cervical incompetence and a Shrestha cerclage was placed at 14 weeks with this . She has also been on vaginal progesterone. She reports good movements. No bleeding or leaking fluid. No abnormal discharge. Reason for evaluation: other Evaluation Laboratory results: Laboratory Tests 08/21/22 Range/Units Unknown Vaginal Trichomonas Pending Vaginal Yeast Pending Vaginal Clue Cells Pending Group B Strep DNA Pending Fibronectin Pending Comments: Cervix visually closed and thick without tension on cerclage strings. Moderate white, physiologic discharge. FFN negative Cervical Length 4.8 cm Wet Prep negative UA pending. Fetus (Single) Heart Rate Baseline: 140 Psychiatric Tech Variability: Moderate (6-25) Monitor Accelerations: Present Monitor Decelerations: None Final Diagnosis (1) Abdominal pain: Status: Acute Problem details: Patient presents with abdominal pain vs contractions. Her NST is reassuring and contractions are not picking up on the monitor. Her FFN is negative and cervical length >3 cm. She has had 1.5 L of IV hydration and symptoms have improved slightly. Discussed with perinatologist professor of communication, she was reassured by findings and was ok with observation overnight here vs d/c to home if patient reliable to come back to center with any concerns or changes in symptoms. Patient was given these options and elected to d/c home overnight. labor precautions reviewed. Patient instructed to follow up with Dr. Santana next week. (2) contractions: Status: Acute (3) History of delivery: Status: Acute
[2022-08-21] MEDS: LACTATED RINGERS 1000 ML 1,000 ML 200 ML IV (23:16)
[2022-08-21 23:19] LABS: Clue Cells <20% Clue Cells Seen (None Seen); Trichomonas No Trichomonas Seen (None Seen); Yeast No Yeast Seen (None Seen)
[2022-08-21 23:39] LABS: Fetal Fibronectin* Negative (Negative)
[2022-08-21] MEDS: ONDANSETRON 2 MG/ML inj 4 MG IVP (23:39)
[2022-08-21] MEDS: ACETAMINOPHEN 500 MG TABLET 1000 MG PO (23:40)
--- NOTE | 2022-08-21 23:52 | CRLHL7_ITS ---
For Patients: As a result of the Cures Act, medical imaging exams and procedure reports are released immediately into your electronic medical record. You may view this report before your referring provider. If you have questions, please contact your health care provider. INDICATION: labor, history of incompetent cervix, cerclage in place. TECHNIQUE: Ultrasound cervix limited. Real-time sonographic images of the cervix were obtained. COMPARISON: None. FINDINGS/IMPRESSION: Cervix appears closed and measures 4.8 cm. Dictated by Neeraj Lock MD @ 08/22/2022 1:16:35 AM (Electronically Signed)
[2022-08-22 00:04] VITALS: RESP 18; TEMP 36.7
[2022-08-22] MEDS: hydrOXYzine pamoate 25 MG CAPSULE 100 MG PO (01:06)
[2022-08-22] MEDS: MORPHINE 10 MG/ML inj IM (01:07)
[2022-08-22 01:45] LABS: Appearance Urine Clear (Clear); Bilirubin Urine 1+ (Negative); Blood Urine Negative (Negative); Color Urine Yellow (Yellow); Glucose Urine Negative (Negative); Ketones Urine 4+ (Negative); Leukocyte Esterase Urine 1+ (Negative); Nitrite Urine Negative (Negative); Protein Urine 1+ (Negative)
[2022-08-22 02:00] LABS: Mucus Urine Few; RBC Urine 0-2 (0-2); Squamous Epithelial Cell Urine Few (None-Few); WBC Urine 0-2 (0-5)
--- NOTE | 2022-08-22 02:24 | PC.OBNST ---
NST Note NST Note Start: 08/22/22 02:22 Freq: Status: Active Protocol: Document 08/22/22 02:23 AVL (Rec: 08/22/22 02:24 AVL [id number]) NST Note 3 Para (# of births) 1 EDC 10/25/22 Gestational Age In Weeks & Days 30 Weeks & 6 Days High Risk Factors History of Labor/ Delivery Patient Presented with Complaint(s) of Contractions/cramping,Nausea and vomiting Reactive Yes Appropriate for Gestational Age Yes PAN Herrera RN Date 08/22/22 Reactive Yes Appropriate for Gestational Age Yes PAN Arias RNC Date 08/22/22 OB NST charge Yes Complete NST Note via Write Note Yes The provider's electronic signature indicates the NST is reactive/appropriate for gestational age. *Note to provider: If an addendum is required, open the patient's chart and click on the note under the Nurse/Allied Health tab.
[2022-08-22 17:24] LABS: Strep B DNA Probe NEGATIVE (Negative)
[2022-08-22 17:26] LABS: Strep B Pen/Amox Allergy No
== END 2022-08-22 01:30 | disposition home or self-care (01) ==
LOC: OB OUT 22:13 → OB 22:14
PROVIDERS: PCP Family Medicine; Visit Provider Family Medicine
DX: O47.00 False labor before 37 completed weeks of gestation, unspecified trimester (principal); Z87.51 Personal history of pre-term labor
CPT/HCPCS: 0353U; 59025; 76817; 80306; 81001; 84112; 87081; 87086; 87210; 87653; 99213; A9270; J2270; J2405; J7120

== ENCOUNTER 2022-12-27 03:48 | Outpatient (CLI) | payer BC, SELFPAY | END 2022-12-27 03:49 | disposition home or self-care (01) | LOC: AMB 12-30 11:55 | PROVIDERS: PCP Family Medicine; Visit Provider Family Medicine | DX: R07.89 Other chest pain (principal) | CPT/HCPCS: A0425; A0427 ==

== ENCOUNTER 2022-12-27 04:20 | Emergency (ER) | payer BC, SELFPAY ==
[2022-12-27 04:24] VITALS: BP 107/79; PULSE 89; RESP 18; TEMP 36.1; O2SAT 95
--- NOTE | 2022-12-27 05:27 | ED_ITS ---
HPI - General Adult General Chief complaint: Extremity Pain/Injury, Upper Stated complaint: Rght Am Pain Time Seen by Provider: 12/27/22 04:24 History of Present Illness HPI narrative: 11/16 for pain rating to left wrist. Pain to left arm has been going on for 1 week. This morning, reduced sensation and strength is why pt called 911, this started around 1am. 27-year-old woman arriving via EMS accompanied by friend with a concern of left arm area pain. She has been having a week of discomfort into her left arm in into the left hand/wrist. This morning with more numbness and felt weaker so called for help. Does not recall any particular trauma. Is not describing new headaches. No fever. No rashes. Not engaged in any particular repetitive activity. Related Data Home Medications Medication Instructions Recorded Confirmed bupropion HCl 300 mg 24 hr tablet, 300 mg PO DAILY 01/23/22 08/22/22 extended release lansoprazole 30 mg capsule,delayed 30 mg PO DAILY 01/23/22 08/21/22 release metoclopramide HCl 5 mg tablet 5 mg PO Q6H PRN 01/23/22 08/21/22 sertraline 100 mg tablet 200 mg PO Q24H 01/23/22 08/22/22 vits 75-iron 28 mg-folic 1 pkg PO DAILY 03/06/22 08/22/22 acid 800 mcg-omega3 440 mg oral pack (One Daily ) bupropion HCl 150 mg 24 hr tablet, 150 mg PO DAILY 03/13/22 08/22/22 extended release ondansetron 4 mg disintegrating 4 mg PO Q6H PRN 03/13/22 08/22/22 tablet progesterone micronized 200 mg 200 mg vaginal QPM 08/21/22 08/21/22 capsule sertraline 50 mg tablet mg PO 08/21/22 Allergies Allergy/AdvReac Type Severity Reaction Status Date / Time nickel Allergy Unknown Verified 04/19/22 20:14 prochlorperazine Allergy Unknown Agitated Verified 04/19/22 20:14 [From Compazine] Review of Systems Status of ROS: Reports: 6 or more systems reviewed and unremarkable except as noted in History and below [facility] Medical History 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 - Herpesviral infection, unspecified (ICD-10) Anxiety ?F41.9 - Anxiety disorder, unspecified (ICD-10) IBS (irritable bowel syndrome) ?K58.9 - Irritable bowel syndrome without diarrhea (ICD-10) Surgical History History of cholecystectomy ?Z90.49 - Acquired absence of other specified parts of digestive tract (ICD- 10) Social History Smoking Status: Never smoker Do you use any of these nicotine containing products: None Second hand tobacco smoke exposure: No How often do you have a drink containing alcohol: never How often do you have six or more drinks on one occasion: Never AUDIT-C Alcohol total score: 0 Non-prescribed substance use: denies use service: No Exam Narrative: Exam Narrative: Pleasant. Mildly anxious. NAD. Favoring her left arm though. Tinel's is negative as is Phalen's. She has good muscle tone over the left upper extremity. No midline neck tenderness. Has good range of motion. Though I think more sore to rotation to the right. Can rotate to about 45? bilaterally. Not exactly positive Spurling's. Seemed a little uncomfortable though. Little sore to palpation in the rhomboids. No rashes. Subjective altered sensation is noted. Well-perfused peripherally. Intact DTRs. Not hyperreflexic Const: Vital Signs, click to edit/add: Vital Signs - 24 hr 12/27/22 04:24 Temperature 97.0 F L Pulse Rate [Left P ulse Oximeter] 89 Respiratory Rate 18 Blood Pressure [Ri ght Upper Arm] 107/79 Pulse Oximetry 95 Oxygen Delivery Me thod Room Air Documenting provider has reviewed patient's vital signs: yes Course Vital Signs Vital signs: Initial Vital Signs Temperature 97.0 F L 12/27/22 04:24 Temperature Source Temporal Artery Scan 12/27/22 04:24 Pulse Rate 89 12/27/22 04:24 Pulse Rhythm Regular 12/27/22 04:24 Respiratory Rate 18 12/27/22 04:24 Blood Pressure 107/79 12/27/22 04:24 Blood Pressure Mean 88 12/27/22 04:24 Blood Pressure Position Semi-Fowlers 12/27/22 04:24 Pulse Oximetry 95 12/27/22 04:24 Oxygen Delivery Method Room Air 12/27/22 04:24 Vital Signs Temperature 97.0 F L 12/27/22 04:24 Pulse Rate 89 12/27/22 04:24 Respiratory Rate 18 12/27/22 04:24 Blood Pressure 107/79 12/27/22 04:24 Pulse Oximetry 95 12/27/22 04:24 Oxygen Delivery Method Room Air 12/27/22 04:24 Temperature 98.0 F 12/27/22 06:38 Pulse Rate 89 12/27/22 06:38 Respiratory Rate 18 12/27/22 06:38 Blood Pressure 112/74 12/27/22 06:38 Pulse Oximetry 95 12/27/22 06:01 Oxygen Delivery Method Room Air 12/27/22 06:01 Medical Decision Making MDM Narrative Medical decision making narrative: Without trauma I do not think CT imaging is necessary. [place] next level imaging given symptoms would probably be MRI. MRI is not available at this time. I do not think there is anything central going on here. Would appear to have cervical spine impingement. I think basic neck x-ray looking for spurring or marked federico or retrolisthesis might be helpful as initial screening. X-ray is reviewed by me looks to be unremarkable. She already has a follow-up arranged in clinic. See patient discharge plan Discharge Plan Discharge Clinical Impression: Radiculopathy affecting upper extremity Patient Disposition: Home, Self-Care Condition: Stable Additional Instructions: Stay well-hydrated. I am glad you have this appointment coming up after the weekend. Do make that to discuss next steps in care/evaluation. Take the prednisone beginning tomorrow as 60 mg daily for 3 days, 40 mg daily for 3 days, 20 mg daily for 3 days. Can take up to 800 mg of ibuprofen or up to 1000 mg of acetaminophen per dose otherwise. Alternative to the ibuprofen might be up to 500 mg of naproxen 2 times daily Remember that each tablet of Loleta contains 325 mg of acetaminophen Loleta and prednisone from [facility] Prescriptions: No Action One Daily 28-800-440 mg-mcg-mg combo pack 1 pkg PO DAILY sertraline 100 mg tablet 200 mg PO Q24H Patient Comments: TAKE TWO TABLETS BY MOUTH DAILY metoclopramide HCl 5 mg tablet 5 mg PO Q6H PRN Hold Instructions: Doctor's Order Patient Comments: Take 1 Tablet (5 mg) by mouth every 6 hours if needed for Nausea/Vomiting lansoprazole 30 mg capsule,delayed release(DR/EC) 30 mg PO DAILY Patient Comments: TAKE ONE CAPSULE BY MOUTH ONE TIME DAILY bupropion HCl 300 mg tablet extended release 24 hr 300 mg PO DAILY Patient Comments: TAKE ONE TABLET BY MOUTH IN THE MORNING bupropion HCl 150 mg tablet extended release 24 hr 150 mg PO DAILY ondansetron 4 mg tablet,disintegrating 4 mg PO Q6H PRN progesterone micronized 200 mg capsule 200 mg vaginal QPM sertraline 50 mg tablet PO Follow Up/Referrals: Beronica Cruz MD [Staff Physician] - Stand Alone Forms: [employer] Info Instructions
--- NOTE | 2022-12-27 05:32 | CRLHL7_ITS ---
For Patients: As a result of the Century Cures Act, medical imaging exams and procedure reports are released immediately into your electronic medical record. You may view this report before your referring provider. If you have questions, please contact your health care provider. INDICATION: Radicular symptoms TECHNIQUE: Cervical spine 3 view. COMPARISON: None FINDINGS: Bones: Alignment is normal. No fractures or significant bone lesions. Joints: Disc spaces and facets are unremarkable. Soft tissues: Unremarkable. IMPRESSION: Unremarkable cervical spine. Dictated by Alvin Lloyd MD @ 12/27/2022 6:45:24 AM (Electronically Signed)
[2022-12-27 05:52] VITALS: TEMP 36.8
[2022-12-27] MEDS: IBUPROFEN 400 MG TABLET 800 MG PO (05:52)
[2022-12-27] MEDS: predniSONE 20 MG TABLET 60 MG PO (05:53)
[2022-12-27 06:01] VITALS: BP 112/74; PULSE 89; RESP 18; TEMP 36.7; O2SAT 95
[2022-12-27 06:36] VITALS: TEMP 36.7
[2022-12-27 06:38] VITALS: BP 112/74; PULSE 89; RESP 18; TEMP 36.7
== END 2022-12-27 06:38 | disposition home or self-care (01) ==
PROVIDERS: Emergency Provider Family Medicine; PCP Family Medicine
DX: M54.10 Radiculopathy, site unspecified (principal)
CPT/HCPCS: 72040; 99283; 99284; A9270; J7512

== ENCOUNTER 2023-11-24 18:00 | Emergency (ER) | payer BC, SELFPAY ==
[2023-11-24 18:08] VITALS: BP 118/81; PULSE 97; RESP 16; TEMP 36.6; O2SAT 98; BMI 40.4
--- NOTE | 2023-11-24 18:16 | ED_ITS ---
HPI - General Adult General Chief complaint: Extremity Pain/Injury, Lower Stated complaint: possible blood clot in R leg Time Seen by Provider: 11/24/23 18:16 History of Present Illness HPI narrative: Patient with right calf pain 08/17 starting last evening without known injury. Pain worse with palpation. 27-year-old young woman presenting to the emergency depart with concern of blood clot in her right leg. Noting later that she is having some pain and vascular distension as she indicates in the medial right heel/foot. She says that she did not actually appreciate that there was swelling but her mother did. No prior history of clot. No specific injury. She woke with this pain in her calf. Sounds like it hurts to walk. Hurts to push on it. No cough or shortness of breath noted although she became somewhat nauseated and little lightheaded on her way in but she is wondering if that might have been related to anxiety. No family history of clotting disorders in the family. Later describes pain going up the back of her thigh as well. Related Data Home Medications ?Medication ?Instructions ?Recorded ?Confirmed bupropion HCl 300 mg 24 hr tablet, 300 mg PO DAILY 01/23/22 11/24/23 extended release lansoprazole 30 mg capsule,delayed 30 mg PO DAILY 01/23/22 11/24/23 release sertraline 100 mg tablet 200 mg PO Q24H 01/23/22 11/24/23 vits 75-iron 28 mg-folic 1 pkg PO DAILY 03/06/22 11/24/23 acid 800 mcg-omega3 440 mg oral pack (One Daily ) bupropion HCl 150 mg 24 hr tablet, 150 mg PO DAILY 03/13/22 11/24/23 extended release ondansetron 4 mg disintegrating 4 mg PO Q6H PRN 03/13/22 11/24/23 tablet sertraline 50 mg tablet mg PO 08/21/22 11/24/23 Allergies Allergy/AdvReac Type Severity Reaction Status Date / Time nickel Allergy Unknown Verified 11/24/23 16:48 prochlorperazine Allergy Unknown Agitated Verified 11/24/23 16:48 [From Compazine] Review of Systems Status of ROS: Reports: 6 or more systems reviewed and unremarkable except as noted in History and below [facility] Medical History 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 - Herpesviral infection, unspecified (ICD-10) Anxiety ?F41.9 - Anxiety disorder, unspecified (ICD-10) IBS (irritable bowel syndrome) ?K58.9 - Irritable bowel syndrome without diarrhea (ICD-10) Surgical History History of cholecystectomy ?Z90.49 - Acquired absence of other specified parts of digestive tract (ICD- 10) Social History Smoking Status: Never smoker Do you use any of these nicotine containing products: None Second hand tobacco smoke exposure: No How often do you have a drink containing alcohol: never How often do you have six or more drinks on one occasion: Never AUDIT-C Alcohol total score: 0 Non-prescribed substance use: denies use service: No Exam Narrative: Exam Narrative: Pleasant. Mildly anxious. Breathing easily. Again appreciate some mild swelling to vasculature in the medial right heel/inferior to the medial malleolus. Vasculature looks little puffy here in his evidently quite tender to light palpation. She is particularly sore to palpation of the upper Achilles insertion into the calf musculature. Appears to have negative Homans. No evide nce of external trauma, erythema, rash. Const: Vital Signs, click to edit/add: Vital Signs - 24 hr 11/24/23 18:08 Temperature 97.9 F Pulse Rate [Pulse Oximeter] 97 Respiratory Rate 16 Blood Pressure [Ri ght Upper Arm] 118/81 Pulse Oximetry 98 Oxygen Delivery Me thod Room Air Documenting provider has reviewed patient's vital signs: yes Course Vital Signs Vital signs: Initial Vital Signs Temperature 97.9 F 11/24/23 18:08 Temperature Source Temporal Artery Scan 11/24/23 18:08 Pulse Rate 97 11/24/23 18:08 Respiratory Rate 16 11/24/23 18:08 Blood Pressure 118/81 11/24/23 18:08 Blood Pressure Mean 93 11/24/23 18:08 Blood Pressure Position Sitting 11/24/23 18:08 Pulse Oximetry 98 11/24/23 18:08 Oxygen Delivery Method Room Air 11/24/23 18:08 Vital Signs Temperature 97.9 F 11/24/23 18:08 Pulse Rate 97 11/24/23 18:08 Respiratory Rate 16 11/24/23 18:08 Blood Pressure 118/81 11/24/23 18:08 Pulse Oximetry 98 11/24/23 18:08 Oxygen Delivery Method Room Air 11/24/23 18:08 Temperature 97.9 F 11/24/23 20:09 Pulse Rate 97 11/24/23 20:09 Respiratory Rate 16 11/24/23 20:09 Blood Pressure 118/81 11/24/23 20:09 Pulse Oximetry 98 11/24/23 18:08 Oxygen Delivery Method Room Air 11/24/23 18:08 Medical Decision Making MDM Narrative Medical decision making narrative: I think there is some hyperesthetic response here. I think this is a musculoskeletal issue possibly a superficial thrombophlebitis. I think with the D-dimer and 3 point ultrasound might be able to rule out here. I did bring by bedside ultrasound but this was challenge due to apparent discomfort and I think anxiety. I think would benefit from formal ultrasound in this regard. Requested formal venous ultrasound of her leg. Discussed findings with wood polisher. Absent DVT. Radiology over-read concurs that unremarkable imaging. See patient discharge plan for further discussion Medical Records Medical records reviewed: Yes I reviewed the patient's medical records Discharge Plan Discharge Clinical Impression: Strain of calf muscle Patient Disposition: Home, Self-Care Condition: Improved Additional Instructions: Can take up to 800 mg ibuprofen per dose up to 1000 mg of acetaminophen per dose. Alternatives the ibuprofen might be up to 500 mg of naproxen 2 times daily. Might consider application of topical pain relieving gels/creams as well. Would consider icing your calf a couple of times daily over the next few days. Temporarily it might help to be in a shoe with slightly elevated heel. See handout for stretches/exercises. It seems somehow you have strained the musculature/insertion area of your Achilles tendon. Radiology has had a look at the ultrasound and noted it looks normal. Prescriptions: No Action One Daily 28-800-440 mg-mcg-mg combo pack 1 pkg PO DAILY sertraline 100 mg tablet 200 mg PO Q24H Patient Comments: TAKE TWO TABLETS BY MOUTH DAILY lansoprazole 30 mg capsule,delayed release(DR/EC) 30 mg PO DAILY Patient Comments: TAKE ONE CAPSULE BY MOUTH ONE TIME DAILY bupropion HCl 300 mg tablet extended release 24 hr 300 mg PO DAILY Patient Comments: TAKE ONE TABLET BY MOUTH IN THE MORNING bupropion HCl 150 mg tablet extended release 24 hr 150 mg PO DAILY ondansetron 4 mg tablet,disintegrating 4 mg PO Q6H PRN sertraline 50 mg tablet PO Follow Up/Referrals: Arielle Santana MD [Primary Care Provider] - Stand Alone Forms: [facility] Info Instructions
--- NOTE | 2023-11-24 18:37 | CRLHL7_ITS ---
For Patients: As a result of the Century Cures Act, medical imaging exams and procedure reports are released immediately into your electronic medical record. You may view this report before your referring provider. If you have questions, please contact your health care provider. INDICATION: Right leg pain. COMPARISON: None. TECHNIQUE: A compression venous ultrasound exam was performed of the right lower extremity using vang scale imaging, color Doppler and spectral Doppler analysis. FINDINGS: Sonographic imaging of the right lower extremity demonstrates normal compressibility and color Doppler venous blood flow within the common femoral vein, deep femoral vein, and the proximal greater saphenous vein. Within the thigh, the femoral vein is patent and compressible. At a lower level, the popliteal and posterior tibial veins also show normal compressibility and color Doppler venous blood flow. Limited imaging of the contralateral groin demonstrates a normal spectral waveform and color Doppler venous blood flow within the left common femoral vein. IMPRESSION: Normal venous ultrasound exam. No evidence of deep vein thrombosis within the right lower extremity. Dictated by Jose Andrade MD @ 11/24/2023 7:56:54 PM (Electronically Signed)
[2023-11-24 20:09] VITALS: BP 118/81; PULSE 97; RESP 16; TEMP 36.6
== END 2023-11-24 20:11 | disposition home or self-care (01) ==
PROVIDERS: Emergency Provider Family Medicine; PCP Family Medicine
DX: S86.911A Strain of unspecified muscle(s) and tendon(s) at lower leg level, right leg, initial encounter (principal)
CPT/HCPCS: 93971; 99283; 99284